=== PATIENT | female | born 1970 | race Caucasian/White ===

== ENCOUNTER → 2016-04-08 | Outpatient (CLI) | payer OTHER ==
--- NOTE | 2016-04-08 07:56 | US ---
EXAMINATION TYPE: US liver DATE OF EXAM: 04/08/2016 7:40 AM COMPARISON: NONE CLINICAL HISTORY: R74.8 Abnormal levels of other serum enzymes. EXAM MEASUREMENTS: Liver Length: 14.5 cm Gallbladder Wall: 0.2 cm CBD: 0.2 cm Right Kidney: 11.2 x 3.7 x 5.4 cm Pancreas: not well visualized due to midline bowel gas Liver: wnl Gallbladder: No stones seen Evidence for sonographic Jacob's sign: No CBD: wnl Right Kidney: No hydronephrosis or masses seen IMPRESSION: No significant abnormality appreciated.
== END | disposition home or self-care (01) ==
LOC: RADUSWWP 07:24
PROVIDERS: ATTEND Family Medicine
DX: R74.8 Abnormal levels of other serum enzymes (principal)
CPT/HCPCS: 76705

== ENCOUNTER → 2022-01-26 | Outpatient (CLI) | payer OTHER ==
[2022-01-26 18:11] LABS: Basophils # (A) 0.07 X 10*3/uL (0.00-0.10); Basophils % (A) 1.1 %; Eosinophils % (A) 4.8 %; HCT 41.1 % (37.2-46.3); HGB 13.1 g/dL (12.0-15.0); Immature Grans, Automated 0.3 %; Lymphocytes # (A) 1.58 X 10*3/uL (0.90-5.00); Lymphocytes % (A) 25.3 %; MCH 28.4 pg (27.0-32.0); MCHC 31.9 g/dL (32.0-37.0); MCV 89.2 fL (80.0-97.0); Mean Platelet Volume 9.8 fL (9.5-12.2); Monocytes # (A) 0.65 X 10*3/uL (0.20-1.00); Monocytes % (A) 10.4 %; NRBC Per 100 WBC 0 /100 WBCS (0.0-0.0); Neutrophils # (A) 3.63 X 10*3/uL (1.80-7.70); Neutrophils % (A) 58.1 %; Platelet Count 294 X 10*3/uL (140-440); RBC 4.61 X 10*6/uL (4.10-5.20); RDW 13.3 % (11.5-14.5); WBC 6.25 X 10*3/uL (4.50-10.00)
[2022-01-26 18:35] LABS: African American GFR (CKD) 94.7 (60.0-200.0); BUN/Creat Ratio 17.94 Ratio (12.00-20.00); Blood Urea Nitrogen 14.8 mg/dL (9.0-27.0); Calcium 9.5 mg/dL (8.7-10.3); Carbon Dioxide 27.2 mmol/L (20.0-27.5); Non-African American GFR(CKD) 81.7 (60.0-200.0); Potassium 4.2 mmol/L (3.5-5.5)
== END | disposition home or self-care (01) ==
LOC: LABPAT 12:23
PROVIDERS: ATTEND Urology
DX: Z01.812 Encounter for preprocedural laboratory examination (principal); N20.0 Calculus of kidney
CPT/HCPCS: 36415; 80048; 85025

== ENCOUNTER 2022-02-07 07:58 | Day surgery (SDC) | payer OTHER ==
[~2022-02-07 07:58] MED LIST: CIPROFLOXACIN/DEXTROSE PMX 400 MG in DEXTROSE/WATER 1 200ML.BAG IVPB PRN; DEXAMETHASONE SOD PHOSPHATE 4 MG/ML 1 ML VIAL IV ONE; LACTATED RINGERS 1,000 ML IV SCH; LIDOCAINE 1% (10MG/ML) FOR IV START INTRADERMA PRN; MIDAZOLAM 2 MG/2 ML VIAL IV PRN; ONDANSETRON 4 MG/2 ML VIAL IVP ONE
--- NOTE | 2022-02-07 08:27 | XR ---
EXAMINATION TYPE: XR KUB DATE OF EXAM: 02/07/2022 COMPARISON: NONE HISTORY: Previa TECHNIQUE: One view abdominal series FINDINGS: The osseous structures are intact. The bowel gas pattern is nonspecific. There is a 3 mm calcificati on overlying the left kidney. There is a 7 mm calcification overlying the mid right kidney. Punctate calcification pelvis too small to characterize. Osteitis pubis condensans noted. IMPRESSION: 1. Bilateral nephrolithiasis.
--- NOTE | 2022-02-07 09:29 | P.HPIHPCON ---
History of Present Illness H&P Date: 02/07/22 Chief Complaint: Bilateral renal stones This is a 51-year-old female with history of a 7 mm right-sided renal pelvis stone, and a 3 mm midpole stone. She is intermittently symptomatic from her right-sided stone. Discussed with her the option of right-sided ureteroscopy with holmium laser versus ESWL. Discussed the risk and benefit of each approach. She agreed to proceed with a right-sided ureteroscopy with holmium laser, discussed we can attempt address her 3 mm stone on the left side at the same setting. Discussed with her we will first address her right-sided stone, and if the scope can passed up easily to the left kidney without dilation and we'll address her left-sided stone at the same setting. I discussed with her if ureteral dilation is required we will not perform a left-sided ureteroscopy given the small size of the stone. She understood all the risk and agreed to proceed with a right-sided ureteroscopy, with holmium laser lithotripsy, stone basketing, stent insertion and possible left-sided ureteroscopy with holmium laser Consent for Procedure: I have explained the operation/procedure to the patient, including the risks, benefits, side effects, alternative therapies (including not receiving the proposed treatment or service), the likelihood of the patient achieving his/her goals, and potential recuperation problems for the procedure/sedation/analgesia, as well as any blood products, if indicated. I also explained to the patient the risks, benefits and side effects of the alternatives, as well as the risks related to not receiving the proposed procedure, care, treatment, or services. Past Medical History Additional Past Medical History / Comment(s): kidney stones, teenager was told had a heart murmur History of Any Multi-Drug Resistant Organisms: None Reported Past Surgical History: Uterine Ablation Additional Past Surgical History / Comment(s): cosmetic surg for birthmark as child, lasik eye surgery, repair deviated septum, fungal infection in sinus, Past Anesthesia/Blood Transfusion Reactions: No Reported Reaction Smoking Status: Never smoker Medications and Allergies Home Medications Medication Instructions Recorded Confirmed Type Docusate [Colace] 1 tab PO DAILY 02/03/22 02/07/22 History Tamsulosin [Flomax] 0.4 mg PO DAILY 02/03/22 02/07/22 History Allergies Allergy/AdvReac Type Severity Reaction Status Date / Time Penicillins AdvReac Intermediate Unknown Verified 02/07/22 08:34 Childhood Surgical - Exam Vital Signs Temp Pulse Resp BP Pulse Ox 98 F 71 16 124/61 99 02/07/22 08:33 02/07/22 08:33 02/07/22 08:33 02/07/22 08:33 02/07/22 08:33 - General no distress, moderate pain - Eyes normal ocular movement, no pale - ENT normal nares, normal mucosa - Respiratory normal expansion, normal respiratory effort - Abdomen Abdomen: soft, non tender - Psychiatric oriented to time, oriented to person, oriented to place Assessment and Plan Assessment: OR for right-sided ureteroscopy, with holmium laser lithotripsy, stone basketing, stent insertion and possible left-sided ureteroscopy with holmium laser
[2022-02-07] MEDS ORDERED: KETOROLAC 15 MG/ML 1 ML VIAL ONE (09:48)
[2022-02-07] MEDS ORDERED: LIDOCAINE 2% INJ 20 MG/ML (2 ML VIAL) ONE (09:48)
[2022-02-07] MEDS ORDERED: ROCURONIUM 10 MG/ML (5 ML VIAL) IV ONE (09:48)
[2022-02-07] MEDS ORDERED: PROPOFOL 10 MG/ML 20 ML VIAL IV ONE (09:48)
[2022-02-07] MEDS ORDERED: NEOSTIGMINE 1 MG/ML 10 ML VIAL ONE (09:48)
[2022-02-07] MEDS ORDERED: GLYCOPYRROLATE 0.2 MG/ML 2 ML VIAL ONE (09:48)
[2022-02-07] MEDS ORDERED: fentaNYL (PF) 50 MCG/ML 2 ML AMP ONE (09:48)
[2022-02-07] MEDS ORDERED: SUCCINYLCHOLINE CHLORIDE 200 MG/10 ML VIAL IV ONE (09:48)
[2022-02-07] MEDS ORDERED: MIDAZOLAM 2 MG/2 ML VIAL ONE (09:48)
[2022-02-07] MEDS ORDERED: LACTATED RINGERS 1,000 ML IV ONE ×2 (11:08)
[2022-02-07 11:19] VITALS: TEMP 98.6
--- NOTE | 2022-02-07 11:26 | P.OP ---
Date of Procedure: 02/07/22 Preoperative Diagnosis: Bilateral renal stones Postoperative Diagnosis: Same Procedure(s) Performed: Cystoscopy, bilateral ureteroscopy, holmium laser lithotripsy, right sided stone basketing and stent insertion Implants: 6-[place] by 24 cm stent in the right ureter left on a string Anesthesia: MED[facility] Surgeon: Franco Velasquez Estimated Blood Loss (ml): 5 Pathology: none sent (Right renal stone) Condition: stable Disposition: PACU Indications for Procedure: This is a 51-year-old female with history of a 7 mm right-sided renal pelvis stone, and a 3 mm midpole stone. She is intermittently symptomatic from her right-sided stone. Discussed with her the option of right-sided ureteroscopy with holmium laser versus ESWL. Discussed the risk and benefit of each approach. She agreed to proceed with a right-sided ureteroscopy with holmium laser, discussed we can attempt address her 3 mm stone on the left side at the same setting. Discussed with her we will first address her right-sided stone, and if the scope can passed up easily to the left kidney without dilation and we'll address her left-sided stone at the same setting. I discussed with her if ureteral dilation is required we will not perform a left-sided ureteroscopy given the small size of the stone. She understood all the risk and agreed to proceed with a right-sided ureteroscopy, with holmium laser lithotripsy, stone basketing, stent insertion and possible left-sided ureteroscopy with holmium laser Operative Findings: Large stone within the right renal pelvis, and additional stone in the left upper pole Description of Procedure: Patient brought to the operating room, general anesthesia was induced she was prepped and draped in sterile fashion and placed in dorsal lithotomy position. Cystoscopy fitted with 21-[place] sheath was inserted per urethra, cystoscopy was performed which showed no abnormality within the bladder. Attention was then carried to the right ureteral orifice which was intubated with a sensor wire. Under fluoroscopy the wire was advanced into the renal pelvis. Under fluoroscopy next a 1113 [place] access sheath was passed over the wire and into the proximal ureter. The flexible ureteroscope was inserted through the access sheath renoscopy was performed showed a large stone in the renal pelvis. Using the holmium laser the stone was fragmented into small fragments, sizable fragments were removed using the stone basket and sent for analysis. Repeat renoscopy showed no sizable stone or injury to the kidney. Pullback ureteroscopy was performed showed no injury to the ureter or any ureteral stones, there was mild ureteral edema at the distal ureter. At this time as ureteroscope was withdrawn a sensor wire was advanced through. Next a ureteral stent was passed over the wire, the proximal curl was visualized on fluoroscopy and the distal curl was visualized using cystoscope, the string was left on the wire and taped to the patient's thigh. At this time attention was then carried t o the left side, cystoscopy was reinserted through the urethra and the left ureteral orifice was intubated with a sensor wire, I attempted to advance the ureteroscope over the wire but was not able to due to the angle of the ureteral orifice. At this time the ureteroscope was removed with the wire in place next an [id number] access sheath was passed over the wire into the distal ureter only. Next a flexible ureteroscope was advanced through the access sheath and I advanced the scope all the way up to the kidney. Renoscopy was performed which showed a stone in the upper pole. Using the holmium laser the stone was dusted, repeat renoscopy showed no sizable fragments or injury to the kidney. Pullback ureteroscopy was performed showed no injury to the ureter or any ureteral stone. The bladder was emptied at the end of the case. Patient procedure well taken to recovery in stable condition
[2022-02-07] MEDS: HYDROmorphone 0.5 MG/0.5 ML SYRINGE IVP PRN ×2 (11:33→12:16)
[2022-02-07] MEDS ORDERED: KETOROLAC 15 MG/ML 1 ML VIAL IVP ONE (12:12)
--- NOTE | 2022-02-07 12:27 | FL ---
EXAMINATION TYPE: FL guidance operating room DATE OF EXAM: 02/07/2022 HISTORY: Fluoroscopy time 39 seconds of fluoroscopy provided. IMPRESSION: 1. Fluoroscopy time.
[2022-02-07 12:36] VITALS: RESP 16
[2022-02-07] MEDS ORDERED: ONDANSETRON 4 MG/2 ML VIAL ONE (13:03)
[2022-02-07] MEDS ORDERED: ONDANSETRON 4 MG/2 ML VIAL IVP ONE (13:05)
[2022-02-07] MEDS ORDERED: fentaNYL (PF) 50 MCG/1 ML VIAL IVP ONE (13:09)
[2022-02-07 14:06] VITALS: BP 101/62; PULSE 63
== END 2022-02-07 14:44 | disposition home or self-care (01) ==
LOC: OR 07:58
PROVIDERS: ATTEND Urology
DX: N20.0 Calculus of kidney (principal); Z88.0 Allergy status to penicillin; Z79.899 Other long term (current) drug therapy
CPT/HCPCS: 52356; 81025; 82365; 74018; C2625; C1769; J2250; J0330; J1100; J2710; J2405; J3010 ×2; J0744; J1885; J2704; J1170; J1790; J2001

== ENCOUNTER 2022-02-12 15:28 | Emergency (ER) | payer OTHER ==
[2022-02-12] MEDS ORDERED: ONDANSETRON 4 MG/2 ML VIAL IVP STA (16:45)
[2022-02-12] MEDS ORDERED: SODIUM CHLORIDE 0.9% 1,000 ML IV STA ×2 (16:45→16:47)
[2022-02-12] MEDS ORDERED: KETOROLAC 15 MG/ML 1 ML VIAL IVP STA (16:46)
--- NOTE | 2022-02-12 16:51 | ED ---
Abdominal Pain HPI - General Chief Complaint: Abdominal Pain Stated Complaint: Post-op comp Time Seen by Provider: 02/12/22 16:35 Source: patient, RN notes reviewed Mode of arrival: wheelchair Limitations: no limitations - History of Present Illness Initial Comments: 51-year-old female with a neurological procedure done 5 days ago when she had kidney stones lasered in both kidneys but had a stent put in the right ureter who states that the stent came out during the early childhood associate and was pulled out this morning. Since that time she's had very severe right-sided flank pain nausea vomiting fevers chills sweats she can keep fluids down. She states the right flank pain feels like somebody hit her with a baseball bat. No difficulty breathing no sore throat earaches rhinorrhea. She states she's had bloody urine. The current complaints or modifying factors she did talk to Dr. Watt, who is on-call for urology she was instructed to come the emergency department for initial evaluation and treatment. MD Complaint: flank pain - Related Data Home Medications Medication Instructions Recorded Confirmed Docusate [Colace] 1 tab PO DAILY 02/03/22 02/07/22 Tamsulosin [Flomax] 0.4 mg PO DAILY 02/03/22 02/07/22 Previous Rx's Medication Instructions Recorded Ciprofloxacin HCl [Cipro] 250 mg PO Q12HR 1 Days #2 tab 02/07/22 Ketorolac [Toradol] 10 mg PO Q6HR PRN #15 tab 02/07/22 Ciprofloxacin HCl [Cipro] 500 mg PO BID 1 Days #14 tab 02/12/22 Ketorolac [Toradol] 10 mg PO Q6HR #20 tab 02/12/22 Allergies Allergy/AdvReac Type Severity Reaction Status Date / Time Penicillins AdvReac Intermediate Unknown Verified 02/12/22 16:30 Childhood Review of Systems ROS Statement: Those systems with pertinent positive or pertinent negative responses have been documented in the HPI. ROS Other: All systems not noted in ROS Statement are negative. Past Medical History Additional Past Medical History / Comment(s): kidney stones, teenager was told had a heart murmur History of Any Multi-Drug Resistant Organisms: None Reported Past Surgical History: Uterine Ablation Additional Past Surgical History / Comment(s): cosmetic surg for birthmark as child, lasik eye surgery, repair deviated septum, fungal infection in sinus, Past Anesthesia/Blood Transfusion Reactions: No Reported Reaction Past Psychological History: No Psychological Hx Reported Smoking Status: Never smoker Past Alcohol Use History: None Reported Past Drug Use History: None Reported General Exam - General Exam Comments Initial Comments: This is a well-developed well-nourished awake alert oriented 4 female. Patient's demonstrating evidence of shaking or rigors on my examination Limitations: no limitations General appearance: alert, anxious, in distress Head exam: Present: atraumatic, normocephalic, normal inspection Eye exam: Present: normal appearance, PERRL, EOMI. Absent: scleral icterus, conjunctival injection, periorbital swelling ENT exam: Present: mucous membranes dry Neck exam: Present: normal inspection, full ROM. Absent: tenderness, meningismus, lymphadenopathy Respiratory exam: Present: normal lung sounds bilaterally. Absent: respiratory distress, wheezes, rales, rhonchi, stridor Cardiovascular Exam: Present: regular rate, normal rhythm, normal heart sounds. Absent: systolic murmur, diastolic murmur, rubs, gallop, clicks GI/Abdominal exam: Present: soft, tenderness (Right flank tenderness palpation), normal bowel sounds. Absent: distended, guarding, rebound, rigid, bruit, pulsatile mass Extremities exam: Present: normal inspection, full ROM, normal capillary refill. Absent: tenderness, pedal edema, joint swelling, calf tenderness Back exam: Present: normal inspection, CVA tenderness (R) Neurological exam: Present: alert, oriented X3, CN II-XII intact Psychiatric exam: Present: normal affect, normal mood Skin exam: Present: warm, dry, intact, normal color. Absent: rash Course Vital Signs 02/12/22 16:27 Temperature 98 F Pulse Rate 78 Respiratory 16 Rate Blood Pressure 121/64 O2 Sat by Pulse 100 Oximetry Medical Decision Making - Medical Decision Making Patient is feeling much improved and a couple reevaluation's I did discuss the case with her and her as well as with Dr. Watt. Patient will be discharged home on oral antibiotics and oral Toradol with increase oral fluids follow-up as planned the patient is in agreement with this plan. - Lab Data Result diagrams: 02/12/22 16:43 02/12/22 16:43 Lab Results 02/12/22 02/12/22 02/12/22 Range/Units 16:43 16:43 16:43 WBC 13.6 H (3.8-10.6) k/uL RBC 5.11 (3.80-5.40) m/uL Hgb 14.9 (11.4-16.0) gm/dL Hct 44.3 (34.0-46.0) % MCV 86.8 (80.0-100.0) fL MCH 29.1 (25.0-35.0) pg MCHC 33.6 (31.0-37.0) g/dL RDW 12.6 (11.5-15.5) % Plt Count 290 (150-450) k/uL MPV 7.4 Neutrophils % 91 % Lymphocytes % 4 % Monocytes % 3 % Eosinophils % 1 % Basophils % 0 % Neutrophils # 12.4 H (1.3-7.7) k/uL Lymphocytes # 0.5 L (1.0-4.8) k/uL Monocytes # 0.4 (0-1.0) k/uL Eosinophils # 0.2 (0-0.7) k/uL Basophils # 0.0 (0-0.2) k/uL Sodium 139 (137-145) mmol/L Potassium 4.4 (3.5-5.1) mmol/L Chloride 105 (98-107) mmol/L Carbon Dioxide 21 L (22-30) mmol/L Anion Gap 13 mmol/L BUN 16 (7-17) mg/dL Creatinine 0.82 (0.52-1.04) mg/dL Est GFR (CKD-EPI)AfAm >90 (>60 ml/min/1.73 sqM) Est GFR (CKD-EPI)NonAf 83 (>60 ml/min/1.73 sqM) Glucose 119 H (74-99) mg/dL Plasma Lactic Acid Ren (0.7-2.0) mmol/L Calcium 9.6 (8.4-10.2) mg/dL Total Bilirubin 1.2 (0.2-1.3) mg/dL AST 27 (14-36) U/L ALT 27 (4-34) U/L Alkaline Phosphatase 95 (38-126) U/L Creatine Kinase 105 (30-135) U/L Total Protein 8.1 (6.3-8.2) g/dL Albumin 5.1 H (3.5-5.0) g/dL Urine Color Yellow Urine Appearance Cloudy H (Clear) Urine pH 8.0 (5.0-8.0) Ur Specific [place] 1.016 (1.001-1.035) Urine Protein 1+ H (Negative) Urine Glucose (UA) Negative (Negative) Urine Ketones 2+ H (Negative) Urine Blood Large H (Negative) Urine Nitrite Negative (Negative) Urine Bilirubin Negative (Negative) Urine Urobilinogen <2.0 (<2.0) mg/dL Ur Leukocyte Esterase Moderate H (Negative) Urine RBC >182 H (0-5) /hpf Urine WBC 61 H (0-5) /hpf Ur Squamous Epith Cells 1 (0-4) /hpf Urine Bacteria Rare H (None) /hpf Urine Mucus Moderate H (None) /hpf Coronavirus (PCR) (Not Detectd) Influenza Type A RNA (Not Detectd) Influenza Type B (PCR) (Not Detectd) 02/12/22 02/12/22 02/12/22 Range/Units 16:43 16:43 16:43 WBC (3.8-10.6) k/uL RBC (3.80-5.40) m/uL Hgb (11.4-16.0) gm/dL Hct (34.0-46.0) % MCV (80.0-100.0) fL MCH (25.0-35.0) pg MCHC (31.0-37.0) g/dL RDW (11.5-15.5) % Plt Count (150-450) k/uL MPV Neutrophils % % Lymphocytes % % Monocytes % % Eosinophils % % Basophils % % Neutrophils # (1.3-7.7) k/uL Lymphocytes # (1.0-4.8) k/uL Monocytes # (0-1.0) k/uL Eosinophils # (0-0.7) k/uL Basophils # (0-0.2) k/uL Sodium (137-145) mmol/L Potassium (3.5-5.1) mmol/L Chloride (98-107) mmol/L Carbon Dioxide (22-30) mmol/L Anion Gap mmol/L BUN (7-17) mg/dL Creatinine (0.52-1.04) mg/dL Est GFR (CKD-EPI)AfAm (>60 ml/min/1.73 sqM) Est GFR (CKD-EPI)NonAf (>60 ml/min/1.73 sqM) Glucose (74-99) mg/dL Plasma Lactic Acid Ren 2.0 (0.7-2.0) mmol/L Calcium (8.4-10.2) mg/dL Total Bilirubin (0.2-1.3) mg/dL AST (14-36) U/L ALT (4-34) U/L Alkaline Phosphatase (38-126) U/L Creatine Kinase (30-135) U/L Total Protein (6.3-8.2) g/dL Albumin (3.5-5.0) g/dL Urine Color Urine Appearance (Clear) Urine pH (5.0-8.0) Ur Specific [place] (1.001-1.035) Urine Protein (Negative) Urine Glucose (UA) (Negative) Urine Ketones (Negative) Urine Blood (Negative) Urine Nitrite (Negative) Urine Bilirubin (Negative) Urine Urobilinogen (<2.0) mg/dL Ur Leukocyte Esterase (Negative) Urine RBC (0-5) /hpf Urine WBC (0-5) /hpf Ur Squamous Epith Cells (0-4) /hpf Urine Bacteria (None) /hpf Urine Mucus (None) /hpf Coronavirus (PCR) Not Detected (Not Detectd) Influenza Type A RNA Not Detected (Not Detectd) Influenza Type B (PCR) Not Detected (Not Detectd) - Radiology Data Radiology results: image reviewed (I did review the image of the CAT scan brandi dence of hydronephrosis and hydroureter. Kidney stones in the left kidney no acute findings otherwise) Disposition Clinical Impression: Renal colic on right side, Hematuria, Kidney stones, Hydronephrosis Disposition: HOME SELF-CARE Condition: Good Instructions (If sedation given, give patient instructions): Renal Colic (ED), Hematuria (ED), Hydronephrosis (ED) Prescriptions: Ciprofloxacin HCl [Cipro] 500 mg PO BID 1 Days #14 tab Ketorolac [Toradol] 10 mg PO Q6HR #20 tab Is patient prescribed a controlled substance at d/c from ED?: No Referrals: Bryan Ulloa MD [Primary Care Provider] - 1-2 days Decision Date: 02/12/22 Decision Time: 18:57
[2022-02-12 17:07] LABS: Appearance,Urine Cloudy (Clear); Bacteria,Urine Rare /hpf; Bilirubin,Urine Negative (Negative); Blood,Urine Large (Negative); Color,Urine Yellow; Glucose,Urine (UA) Negative (Negative); Ketones,Urine 2+ (Negative); Leukocyte Esterase,Urine Moderate (Negative); Mucus,Urine Moderate /hpf; Nitrite,Urine Negative (Negative); Protein,Urine 1+ (Negative); RBC,Urine >182 /hpf (0-5); Specific Gravity,Urine 1.016 (1.001-1.035); Squamous Epithelial Cell,Urine 1 /hpf (0-4); Urobilinogen,Urine <2.0 mg/dL (<2.0); WBC,Urine 61 /hpf (0-5)
[2022-02-12 17:09] LABS: Basophils % (A) 0 %; Eosinophils # (A) 0.2 k/uL (0-0.7); Eosinophils % (A) 1 %; HCT 44.3 % (34.0-46.0); HGB 14.9 gm/dL (11.4-16.0); Lymphocytes # (A) 0.5 k/uL (1.0-4.8); Lymphocytes % (A) 4 %; MCH 29.1 pg (25.0-35.0); MCHC 33.6 g/dL (31.0-37.0); MCV 86.8 fL (80.0-100.0); Mean Platelet Volume 7.4; Monocytes # (A) 0.4 k/uL (0-1.0); Monocytes % (A) 3 %; Neutrophils # (A) 12.4 k/uL (1.3-7.7); Neutrophils % (A) 91 %; Platelet Count 290 k/uL (150-450); RBC 5.11 m/uL (3.80-5.40); RDW 12.6 % (11.5-15.5); WBC 13.6 k/uL (3.8-10.6)
[2022-02-12 17:18] LABS: ALT 27 U/L (4-34); AST 27 U/L (14-36); African American GFR (CKD) >90 (>60 ml/min/1.73 sqM); Albumin 5.1 g/dL (3.5-5.0); Alkaline Phosphatase 95 U/L (38-126); Anion Gap 13 mmol/L; Blood Urea Nitrogen 16 mg/dL (7-17); Calcium 9.6 mg/dL (8.4-10.2); Carbon Dioxide 21 mmol/L (22-30); Chloride 105 mmol/L (98-107); Creatine Kinase 105 U/L (30-135); Glucose 119 mg/dL (74-99); Non-African American GFR(CKD) 83 (>60 ml/min/1.73 sqM); Potassium 4.4 mmol/L (3.5-5.1); Sodium 139 mmol/L (137-145); Total Bilirubin 1.2 mg/dL (0.2-1.3); Total Protein 8.1 g/dL (6.3-8.2)
--- NOTE | 2022-02-12 17:52 | CT ---
EXAMINATION TYPE: CT abdomen pelvis wo con DATE OF EXAM: 02/12/2022 COMPARISON: None HISTORY: Stent for Kidney stones put in on Monday. Patient said it was coming out this morning, so ondina humberto pulled it out. Now she has right side flank pain. CT DLP: 433.1 mGycm Automated exposure control for dose reduction was used. Images obtained from the diaphragm to the floor the pelvis with no contrast. Lung bases are clear of infiltrate. No pleural effusion. Heart size is normal. No pericardial effusio n. There is small hiatal hernia. Stomach is intact. Liver spleen pancreas gallbladder appear intact. The bile ducts are not dilated. There is no adrenal mass. There is right-sided hydronephrosis and hydroureter. No free fluid in the p chuckie. No evidence of a ureteral calculus. Left kidney shows multiple small calculi up to 4 mm. No ev idence of left-sided obstruction. No retroperitoneal adenopathy. Bladder distends smoothly. Uterus is anteverted. No free fluid in the pelvis. Lumbar vertebrae have normal spacing and alignment. Posteri or elements are intact. No compression fracture. Bony pelvis is intact. The hip joints are intact. IMPRESSION: Right-sided hydronephrosis and hydroureter with mild perinephric edema. Periureteral edema. Nonobstructing left-sided renal calculi. No evidence of thickened appendix.
[2022-02-12] MEDS ORDERED: CIPROFLOXACIN HCL 500 MG TAB PO STA (18:50)
[2022-02-12] MEDS ORDERED: ETODOLAC 400 MG TAB PO STA (18:51)
[2022-02-12 19:39] VITALS: BP 111/59; PULSE 90; RESP 18; TEMP 98.6
== END 2022-02-12 19:39 | disposition home or self-care (01) ==
LOC: EC 15:28
DX: N23 Unspecified renal colic (principal); N20.0 Calculus of kidney; Z88.0 Allergy status to penicillin
CPT/HCPCS: 36415; 80053; 82550; 83605; 85025; 81001; 87040; 87086; 87502; 87635; 74176; 99284; 96374; 96375; 96361 ×3; J2405; J1885

== ENCOUNTER → 2022-03-08 | Outpatient (CLI) | payer OTHER ==
--- NOTE | 2022-03-08 11:51 | XR ---
EXAMINATION TYPE: XR KUB DATE OF EXAM: 03/08/2022 COMPARISON: NONE HISTORY: Pain TECHNIQUE: One view abdominal series FINDINGS: The osseous structures are intact. The bowel gas pattern is nonspecific. No definite suspicious calc ifications overlying the renal outlines. Hypertrophic changes of the spine. There is a 2 mm calcifica tion within the left hemipelvis stable from prior exam. Calcification in the pelvis appear to lie out side of the system on previous CT scan. Spina bifida occulta of the sacrum noted. IMPRESSION: 1. No definite calcifications overlying the renal outlines on today's exam..
== END | disposition home or self-care (01) ==
LOC: RADXRMAIN 11:28
PROVIDERS: ATTEND Urology
DX: N20.1 Calculus of ureter (principal)
CPT/HCPCS: 74018